=== PATIENT | female | born 1975 | race Asian ===

== ENCOUNTER 2021-08-08 11:56 | Day surgery (SDC) | payer OTHER ==
[~2021-08-08] VITALS: Ht 149.9 cm; Wt 91.0 kg
[~2021-08-08 11:56] MED LIST: DOXY100T PO; GUAIFENESIN PO; IBUP-1902 PO; MEDR10TA3 PO
[2021-08-08 12:40] VITALS: BP 133/89
[2021-08-08] MEDS ORDERED: MULT-449 PO (12:45)
[2021-08-08] MEDS ORDERED: CHLORHEXIDINE 15 ML UDC ONE (12:49)
[2021-08-08] MEDS ORDERED: CHLORHEXIDINE 15 ML UDC PO ONE (13:00)
[2021-08-08] MEDS ORDERED: LACTATED RINGERS 1,000 ML IV SCH (13:00)
[2021-08-08] MEDS ORDERED: EPINEPHRINE 1 MG/ML, 1ML ONE (13:47)
[2021-08-08] MEDS ORDERED: BUPIVACAINE/PF 0.25% ONE (13:47)
[2021-08-08] MEDS ORDERED: MISOPROSTOL 200 MCG TABLET ONE (13:47)
[2021-08-08] MEDS ORDERED: OXYTOCIN 10 UNITS/ML, 1ML ONE (13:47)
[2021-08-08] MEDS ORDERED: VASOPRESSIN 20 UNIT/ML, 1ML ONE (13:47)
[2021-08-08] MEDS ORDERED: MIDAZOLAM 1 MG/ML, 2ML ONE (14:04)
[2021-08-08] MEDS ORDERED: ONDANSETRON 2MG/ML, 2ML IVPush PRN (14:30)
[2021-08-08] MEDS ORDERED: MEPERIDINE/PF 25MG/0.5ML IVPush PRN (14:30)
[2021-08-08] MEDS ORDERED: hydrALAzine 20 MG/ML, 1ML IV PRN (14:30)
[2021-08-08] MEDS ORDERED: METOCLOPRAMIDE 5 MG/ML, 2ML IV PRN (14:30)
[2021-08-08] MEDS ORDERED: PROMETHAZINE 25 MG/ML, 1ML IV PRN (14:30)
[2021-08-08] MEDS ORDERED: KETOROLAC 30 MG/1 ML IV PRN (14:30)
[2021-08-08] MEDS ORDERED: DIAZEPAM 5 MG/ML, 2ML IV PRN ×2 (14:30)
[2021-08-08] MEDS ORDERED: OXYcodone 5 MG/5 ML ORAL.SOL UDC PO PRN (14:30)
[2021-08-08] MEDS ORDERED: FENTANYL PF 100 MCG/2ML IV PRN (14:30)
[2021-08-08] MEDS ORDERED: LABETALOL 5MG/ML, 20ML IV PRN (14:30)
[2021-08-08] MEDS ORDERED: HYDROmorphone 1 MG/ML, 1ML INJ IV PRN (14:30)
[2021-08-08] MEDS ORDERED: ALBUTEROL SULFATE 2.5 MG/3 ML NPPB PRN (14:30)
[2021-08-08] MEDS ORDERED: KETOROLAC 30 MG/1 ML ONE (15:01)
== END 2021-08-08 17:25 | disposition home or self-care (01) ==
LOC: OR 11:56
PROVIDERS: ATTEND Obstetrics & Gynecology Female Pelvic Medicine and Reconstructive Surgery
DX: O02.1 Missed abortion (principal); E66.01 Morbid (severe) obesity due to excess calories; Z20.822 Contact with and (suspected) exposure to COVID-19; Z79.899 Other long term (current) drug therapy
CPT/HCPCS: 36415; 59820; 86850; 86900; 87635; 88305; J0171; J1885; J2250; J7120; J2590